=== PATIENT | female | born 1985 | race Caucasian/White ===

== ENCOUNTER 2016-05-01 00:22 | Emergency (ER) | payer BC ==
[2016-05-01 00:41] VITALS: BP 138/87
[2016-05-01] MEDS ORDERED: Ketorolac 60 MG/2 ML SDV IM ONE (00:43)
--- NOTE | 2016-05-01 00:46 | EDM.PDOC ---
ED HPI Trauma - General Chief Complaint: Lower Extremity Injury/Pain Stated Complaint: PAIN IN BOTH LEGS Time Seen by Provider: 05/01/16 00:42 - History of Present Illness INITIAL COMMENTS - FREE TEXT/NARRATIVE: HISTORY AND PHYSICAL: History of present illness: Patient 30-year-old female who presents with a chief complaint of bilateral thigh pain she states she's also had some paresthesia she denies trauma or other concern she denies back pain abdominal pain urinary symptoms vaginal discharge bleeding or other concern Review of systems: As per history of present illness and below otherwise all systems reviewed and negative. Past medical history: As per history of present illness and as reviewed below otherwise noncontributory. Surgical history: As per history of present illness and as reviewed below otherwise noncontributory. Social history: No reported history of drug or alcohol abuse. Family history: As per history of present illness and as reviewed below otherwise noncontributory. Physical exam: HEENT: Atraumatic, normocephalic, pupils reactive, negative for conjunctival pallor or scleral icterus, mucous membranes moist, throat clear, neck supple, nontender, trachea midline. Lungs: Clear to auscultation, breath sounds equal bilaterally, chest nontender. Heart: S1S2, regular, negative for clicks, rubs, or JVD. Abdomen: Soft, nondistended, nontender. Negative for masses or hepatosplenomegaly. Negative for costovertebral tenderness. Pelvis: Stable nontender. Genitourinary: Deferred. Rectal: Deferred. Extremities: Atraumatic, negative for cords or calf pain. Neurovascular unremarkable. Neuro: Awake, alert, oriented. Cranial nerves II through XII unremarkable. Cerebellum unremarkable. Motor and sensory unremarkable throughout. Exam nonfocal. The patient is able to stand on her toes back on her heels motor and sensory of her inferior extremities are unremarkable no demonstrable paresthesia Diagnostics: CBC CMP CPK hCG Therapeutics: Toradol 60 mg IM Impression: #1 bilateral thigh pain/subjective paresthesia Definitive disposition and diagnosis as appropriate pending reevaluation and review of above. Allergies/ADRs: Allergies Tetanus Vaccines and Toxoid Allergy (Verified 05/01/16 00:38) Swelling Home Medications: Ambulatory Orders Control 1 tab PO DAILY 05/01/16 [Confirmed 05/01/16] Past Medical History - Past Surgical History Female Surgical History: Reports: Breast reduction, section Social & Family History - Family History Family Medical History: Noncontributory - Tobacco Use Smoking Status *Q: Never Smoker - Recreational Drug Use Recreational Drug Use: No Review of Systems - Review of Systems Review Of Systems: ROS reveals no pertinent complaints other than HPI. Trauma Exam - Physical Exam Exam: See Below (See dictation) Course - Vital Signs Last Recorded V/S: Last Vital Signs Temp 36.2 C 05/01/16 00:38 Pulse 90 05/01/16 00:38 Resp 18 05/01/16 00:38 BP 138/87 05/01/16 00:38 Pulse Ox 97 05/01/16 00:38 - Orders/Labs/Meds Orders: Active Orders 24 hr Category Date Time Status CBC WITH AUTO DIFF [HEME] Stat Lab 05/01/16 00:42 Ordered COMPREHENSIVE METABOLIC PN,CMP [CHEM] Stat Lab 05/01/16 00:42 Ordered CPK [CREATINE KINASE,CK] [CHEM] Stat Lab 05/01/16 00:43 Ordered HCG QUALITATIVE,SERUM [CHEM] Stat Lab 05/01/16 00:42 Ordered UA W/MICROSCOPIC [URIN] Stat Lab 05/01/16 00:42 Uncollected Ketorolac [Toradol] Med 05/01/16 00:43 Once 60 mg IM ONETIME ONE Departure - Departure Time of Disposition: 00:45 Disposition: Home, Self-Care 01 Condition: good Clinical Impression: Paresthesia, Thigh pain Forms: ED Department Discharge Additional Instructions: The following information is given to patients seen in the emergency department who are being discharged to home. This information is to outline your options for follow-up care. We provide all patients seen in our emergency department with a follow-up referral. The need for follow-up, as well as the timing and circumstances, are variable depending upon the specifics of your emergency department visit. If you don't have a primary care physician on staff, we will provide you with a referral. We always advise you to contact your personal physician following an emergency department visit to inform them of the circumstance of the visit and for follow-up with them and/or the need for any referrals to a consulting specialist. The emergency department will also refer you to a specialist when appropriate. This referral assures that you have the opportunity for followup care with a specialist. All of these measure are taken in an effort to provide you with optimal care, which includes your followup. Under all circumstances we always encourage you to contact your private physician who remains a resource for coordinating your care. When calling for followup care, please make the office aware that this follow-up is from your recent emergency room visit. If for any reason you are refused follow-up, please contact the [facility] emergency department at and asked to speak to the emergency department charge nurse. [facility] - Neurology Professional Building [address] [place] [address], [address] [place] [address] Call schedule routine appointment with private medical doctor/neurology above Motrin Tylenol as directed return as needed as discussed - My Orders Last 24 Hours: My Active Orders 05/01/16 00:42 CBC WITH AUTO DIFF [HEME] Stat COMPREHENSIVE METABOLIC PN,CMP [CHEM] Stat HCG QUALITATIVE,SERUM [CHEM] Stat UA W/MICROSCOPIC [URIN] Stat 05/01/16 00:43 CPK [CREATINE KINASE,CK] [CHEM] Stat Ketorolac [Toradol] 60 mg IM ONETIME ONE - Assessment/Plan Last 24 Hours: My Active Orders 05/01/16 00:42 CBC WITH AUTO DIFF [HEME] Stat COMPREHENSIVE METABOLIC PN,CMP [CHEM] Stat HCG QUALITATIVE,SERUM [CHEM] Stat UA W/MICROSCOPIC [URIN] Stat 05/01/16 00:43 CPK [CREATINE KINASE,CK] [CHEM] Stat Ketorolac [Toradol] 60 mg IM ONETIME ONE
[2016-05-01 01:30] LABS: CHLORIDE,CL 109 mmol/L (98-110); SODIUM,NA 140 mmol/L (136-146)
== END 2016-05-01 01:47 | disposition home or self-care (01) ==
LOC: MW.ED 00:22
DX: M79.651 Pain in right thigh (principal); M79.652 Pain in left thigh; R20.9 Unspecified disturbances of skin sensation; Z88.7 Allergy status to serum and vaccine
CPT/HCPCS: 36415; 80053; 81001; 82550; 84703; 85025; 96372; 99283; J1885

== ENCOUNTER 2019-07-17 16:10 | Emergency (ER) | payer BC ==
[2019-07-17] MEDS ORDERED: predniSONE 20 MG Tab PO ONE (16:40)
[2019-07-17] MEDS ORDERED: predniSONE 10 MG Tab ONE ×2 (16:49→16:50)
--- NOTE | 2019-07-17 16:52 | EDM.PDOC ---
ED HPI GENERAL MEDICAL PROBLEM - General Chief Complaint: Skin Complaint Stated Complaint: LEFT ARM PROBLEMS/HIVES Time Seen by Provider: 07/17/19 16:23 Source of Information: Reports: Patient - History of Present Illness INITIAL COMMENTS - FREE TEXT/NARRATIVE: 33-year-old female presenting with rash bilaterally over lateral chest wall, as well as some smaller lesions of the right lower extremity, and some erythema over the upper chest and neck. Areas of rash are tender/painful and itching, though there has been no drainage. She also reports lymph nodes in both axillae. Denies fever, cough, shortness of breath, chest pain, mental status changes, any known allergic exposures. She took 1 dose of Benadryl, which did not help with the itching or pain. No prior similar symptoms. No known exposures, including no new foods, detergents , shampoos or skin products, or any exposure outside, nor did she notice any insects. No family members with similar symptoms. No breast pain or lumps. No family history of breast cancer or lymphoma. LMP 06/27/2019 Onset: Other (2 days ago) Duration: Getting Worse Location: Reports: Chest, Lower Extremity, Right Quality: Reports: Ache, Other (itching) Improves with: Reports: None Worsens with: Reports: None bilateral sides/armpits Pain Score (Numeric/FACES): 6 - Related Data Allergies Allergy/AdvReac Type Severity Reaction Status Date / Time Tetanus Vaccines and Toxoid Allergy Swelling Verified 07/17/19 16:24 Home Meds: Home Meds predniSONE [Prednisone] 60 mg PO DAILY 5 Days #15 tablet 07/17/19 [Rx] Past Medical History - Past Health History Medical/Surgical History: Denies Medical/Surgical History (Past surgical history as below) - Past Surgical History Female Surgical History: Reports: Breast Reduction, Section Social & Family History - Family History Family Medical History: Noncontributory ED ROS GENERAL - Review of Systems Review Of Systems: Comprehensive ROS is negative, except as noted in HPI. Constitutional: Denies: Fever, Weakness, Fatigue, Diaphoresis HEENT: Denies: Sinus Problem, Throat Swelling Respiratory: Denies: Shortness of Breath Cardiovascular: Denies: Chest Pain Immunologic: Denies: Food Allergy, Seasonal Allergy ED EXAM, SKIN/RASH Exam: See Below General Appearance: Alert, WD/WN, No Apparent Distress Ears: Normal External Exam Nose: Normal Inspection, Normal Mucosa, Other (no rash, no lesions) Throat/Mouth: Normal Inspection, Normal Lips, Normal Teeth, Normal Gums, Normal Oropharynx, Normal Voice, No Airway Compromise, Other (no rash). No: Inflammation Head: Atraumatic, Normocephalic, Other (mild erythema over cheeks) Neck: Non-Tender, Full Range of Motion, Other (mild erythema anterior and lateral neck). No: Lymphadenopathy (L), Lymphadenopathy (R) Respiratory/Chest: No Respiratory Distress, No Accessory Muscle Use, Other (TTP over rash areas, maculopapular rash bilateral chest) Cardiovascular: Normal Peripheral Pulses, Regular Rate, Rhythm GI/Abdominal: Soft, Non-Tender (Female) Exam: Deferred Back Exam: Normal Inspection, Full Range of Motion Extremities: Other (RLE mac-pap rash, mildly tender) Neurological: Alert, Oriented Psychiatric: Normal Affect Skin: Dry, Intact, Erythema Location, Skin: Neck (erythema), Chest (bilateral chest wall maculopapular rash , TTP), Lower Extremity, Right, Axillary (lymph node). No: Palms Characteristics: Macular, Maculopapular, Erythematous Associated features: Tenderness Lymphatic: Adenopathy (b/l axilla, no cervical, supraclavicular, or inguinal lymphadenopathy) Comments: Breast exam: Bilateral breast with no lump or tenderness on palpation. No mass palpable. No nipple abnormalities. No discharge. Course - Vital Signs Last Recorded V/S: Last Vital Signs Temp 97.2 F 07/17/19 18:34 Pulse 80 07/17/19 18:34 Resp 17 07/17/19 18:34 BP 152/88 H 07/17/19 18:34 Pulse Ox 97 07/17/19 18:34 - Orders/Labs/Meds Orders: Active Orders 24 hr Category Date Time Status COMPREHENSIVE METABOLIC PN,CMP [CHEM] Stat Lab 07/17/19 16:50 Results Saline Lock Insert [OM.PC] Stat Oth 07/17/19 16:40 Ordered Labs: Laboratory Tests 07/17/19 07/17/19 Range/Units 16:50 16:50 WBC 8.11 (4.0-11.0) K/uL RBC 4.65 (4.30-5.90) M/uL Hgb 13.4 (12.0-16.0) g/dL Hct 40.9 (36.0-46.0) % MCV 88.0 (80.0-98.0) fL MCH 28.8 (27.0-32.0) pg MCHC 32.8 (31.0-37.0) g/dL RDW Std Deviation 42.3 (28.0-62.0) fl RDW Coeff of Salomon 13 (11.0-15.0) % Plt Count 292 (150-400) K/uL MPV 10.30 (7.40-12.00) fL Neut % (Auto) 58.3 (48.0-80.0) % Lymph % (Auto) 31.4 (16.0-40.0) % Dickens % (Auto) 6.9 (0.0-15.0) % Eos % (Auto) 3.3 (0.0-7.0) % Baso % (Auto) 0.1 (0.0-1.5) % Neut # (Auto) 4.7 (1.4-5.7) K/uL Lymph # (Auto) 2.6 H (0.6-2.4) K/uL Dickens # (Auto) 0.6 (0.0-0.8) K/uL Eos # (Auto) 0.3 (0.0-0.7) K/uL Baso # (Auto) 0.0 (0.0-0.1) K/uL Nucleated RBC % 0.0 /100WBC Nucleated RBCs # 0 K/uL Carbon Dioxide 25.2 (21.0-32.0) mmol/L BUN 12 (7.0-18.0) mg/dL Creatinine 0.8 (0.6-1.0) mg/dL Est Cr Clr Drug Dosing 87.18 mL/min Estimated GFR (MDRD) > 60.0 ml/min Glucose 90 (74-106) mg/dL Calcium 9.4 (8.5-10.1) mg/dL Total Bilirubin 0.3 (0.2-1.0) mg/dL AST 35 (15-37) IU/L ALT 79 H (14-63) IU/L Alkaline Phosphatase 57 (46-116) U/L Total Protein 7.9 (6.4-8.2) g/dL Albumin 4.1 (3.4-5.0) g/dL Globulin 3.8 (2.6-4.0) g/dL Albumin/Globulin Ratio 1.1 (0.9-1.6) Meds: Medications Discontinued Medications Generic Name Dose Route Start Last Admin Trade Name Kelley PRN Reason Stop Dose Admin Prednisone 50 mg 07/17/19 16:40 07/17/19 16:47 Prednisone PO 07/17/19 16:41 50 mg ONETIME ONE Administration Prednisone Confirm 07/17/19 16:49 07/17/19 16:56 Prednisone Administered 07/17/19 16:50 Not Given Dose 10 mg .ROUTE .STK-MED ONE Prednisone Confirm 07/17/19 16:50 07/17/19 16:56 Prednisone Administered 07/17/19 16:51 Not Given Dose 10 mg .ROUTE .STK-MED ONE Prednisone Confirm 07/17/19 16:53 07/17/19 16:56 Prednisone Administered 07/17/19 16:54 Not Given Dose 20 mg .ROUTE .STK-MED ONE - Re-Assessments/Exams Free Text/Narrative Re-Assessment/Exam: 07/17/19 18:31 Patient is feeling slightly better. CBC results were discussed with the patient , which are unremarkable. She received a prednisone. The erythema over her face and neck/chest is much improved. She is in no acute distress. Vital signs were rechecked and are unremarkable. The chemistry is still pending as the lab is having a lab error and machine is nonfunctional at this time. The patient does not want to stay for results and declined chemistry testing at this time. Therefore the order was canceled. Patient will take Benadryl soon as she gets home, Benadryl was deferred at this time as the patient drove here and needs to drive home. 07/17/19 18:37 The rash is maculopapular in some areas and diffusely erythematous and others. Does not appear cellulitic nor vesicular. No abscess. Mild axillary lymphadenopathy. White count not elevated. No easy bruising. No other lymphadenopathy. Breast nontender and without lumps. Attempt steroid and Benadryl for symptom control. Discussed with patient close monitoring and return to emergency department in 2 days if symptoms are not resolved by that time or if worsening return sooner. Departure - Departure Time of Disposition: 18:40 Disposition: Home, Self-Care 01 Clinical Impression: Rash and nonspecific skin eruption - Discharge Information Prescriptions: predniSONE [Prednisone] 60 mg PO DAILY 5 Days #15 tablet Instructions: Rash, Adult, [id number]-Wavm Referrals: PCP,None [Primary Care Provider] - Forms: ED Department Discharge Additional Instructions: The following information is given to patients seen in the emergency department who are being discharged to home. This information is to outline your options for follow-up care. We provide all patients seen in our emergency department with a follow-up referral. The need for follow-up, as well as the timing and circumstances, are variable depending upon the specifics of your emergency department visit. If you don't have a primary care physician on staff, we will provide you with a referral. We always advise you to contact your personal physician following an emergency department visit to inform them of the circumstance of the visit and for follow-up with them and/or the need for any referrals to a consulting specialist. The emergency department will also refer you to a specialist when appropriate. This referral assures that you have the opportunity for follow-up care with a specialist. All of these measure are taken in an effort to provide you with optimal care, which includes your follow-up. Under all circumstances we always encourage you to contact your private physician who remains a resource for coordinating your care. When calling for follow-up care, please make the office aware that this follow-up is from your recent emergency room visit. If for any reason you are refused follow-up, please contact the [facility] Emergency Department at and asked to speak to the emergency department charge nurse. [facility] - Primary Care [address] [place] [address] [id number] [address] [address] Sepsis Event Note (ED) - Evaluation Sepsis Screening Result: No Definite Risk - Focused Exam Vital Signs: Vital Signs Temp Pulse Resp BP Pulse Ox 07/17/19 18:34 97.2 F 80 17 152/88 H 97 07/17/19 16:25 97.6 F 102 H 16 154/96 H 98 - My Orders Last 24 Hours: My Active Orders 07/17/19 16:40 Saline Lock Insert [OM.PC] Stat 07/17/19 16:50 COMPREHENSIVE METABOLIC PN,CMP [CHEM] Stat - Assessment/Plan Last 24 Hours: My Active Orders 07/17/19 16:40 Saline Lock Insert [OM.PC] Stat 07/17/19 16:50 COMPREHENSIVE METABOLIC PN,CMP [CHEM] Stat
[2019-07-17] MEDS ORDERED: predniSONE 20 MG Tab ONE (16:53)
[2019-07-17 17:29] LABS: BLOOD UREA NITROGEN,BUN 12 mg/dL (7.0-18.0); CARBON DIOXIDE,CO2 25.2 mmol/L (21.0-32.0); GLUCOSE RANDOM 90 mg/dL (74-106)
[2019-07-17 18:35] VITALS: BP 152/88; PULSE 80
[2019-07-17 19:14] LABS: CHLORIDE,CL 103 mmol/L (98-107); SODIUM,NA 140 mmol/L (136-145)
== END 2019-07-17 18:37 | disposition home or self-care (01) ==
LOC: MW.ED 16:10
DX: R21 Rash and other nonspecific skin eruption (principal); Z88.8 Allergy status to other drugs, medicaments and biological substances
CPT/HCPCS: 36415; 80053; 85025; 99283; A9270; 99282